=== PATIENT | male | born 1960 | race Caucasian/White ===

== ENCOUNTER → 2018-04-23 | Outpatient (CLI) | payer OTHER ==
--- NOTE | 2018-04-23 16:27 | CONS ---
CONSULTATION REASON FOR CONSULTATION: Sleep apnea. 57-year-old male patient coming in due to concerns of obstructive sleep apnea. The patient is having loud snoring and he is feeling tired and sleepy during the day. 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 He lives in [place]. The patient drives approximately an hour back and forth in each direction to go back and forth to work. At times while coming back home he feels tired and sleepy. He has never fallen asleep nor has he been involved in a motor vehicle accident because of feeling drowsy or sleepy. The patient typically goes to bed at around 10 to 11:00 p.m. and wakes up at 5:00 a.m. in the morning. The patient averages around 6-7 hours of sleep. He wakes up tired and sleepy during the day. No sleep paralysis. No hallucinations. No cataplexy. No restlessness in lower extremities. No history of depression. No recent weight gain or weight loss. He sleeps in different body positions. He prefers to sleep on his side. He drinks 3-4 cups of coffee during the day. No history of alcohol. No history of IV drugs. He quit smoking in September of 2017. PAST MEDICAL HISTORY: Coronary artery disease with previous coronary stenting, diabetes, hypertension, hyperlipidemia. PAST SURGICAL HISTORY: Includes cardiac catheterization, coronary artery stent placement. Hernia repair. DRUG ALLERGIES: Not known. OUTPATIENT MEDICATION LIST: Includes aspirin 81 daily, Lipitor 80 daily, enalapril 20 daily, Norvasc 5 mg p.o. daily, Coreg 25 mg twice a day. Torsemide 10 mg p.o. daily, clonidine 0.1 mg p.o. daily, glipizide 5 mg p.o. daily, 30 mg p.o. daily, vitamin D 2000 units daily, cinnamon and multivitamin. SOCIAL HISTORY: The patient is a nonsmoker. For now he is an ex-smoker who quit smoking in September 2017. No history of alcohol, no history of IV drugs. FAMILY HISTORY: Negative for sleep apnea. REVIEW OF SYSTEMS: 12-point review of system was done. Positive findings are mentioned above in history of present illness. No history of insomnia. No history of choking or gasping sensation at nighttime. No grinding of the teeth. No sleepwalking. No anxiety or panic attacks. No palpitation. No heartburn. No anxiety. No claustrophobia. No sexual dysfunction. PHYSICAL EXAMINATION: Current vitals BP is 161/55, pulse 78, respirations 16, temperature 98.4, saturation 96% on room air. Weight is 207, height 5 feet 7 inches. Neck size 13.5 inches, BMI 32.4. GENERAL APPEARANCE: Calm, comfortable. No acute distress. Head is atraumatic, normocephalic. Neck is short, supple. Crowding of the posterior pharynx is present and the patient has a Mallampati class IV. The patient has no teeth in the upper jaw. ABDOMEN: Soft, nontender. No organomegaly. No direct tenderness, rebound or guarding. EXTREMITIES: No edema. No cyanosis or clubbing. NEUROLOGIC: The patient is alert and oriented x3. There is no focal neurological deficits. PSYCHIATRIC: Negative for anxiety or depression. IMPRESSION: 1. Excessive hypersomnia with suspected obstructive sleep apnea, currently under investigation. 2. Snoring. 3. Coronary artery disease with previous coronary intervention and stenting. 4. Hyperlipidemia. 5. Hypertension. 6. Diabetes mellitus type 2. PLAN: 1. Encourage weight loss. 2. Sleep in a sidewise body position. 3. Implement good sleep hygiene measures. 4. Proceed with a screening polysomnogram to assess the presence of obstructive sleep apnea and treat accordingly. MMODL / IJN: [id number] /
== END | disposition home or self-care (01) ==
LOC: SLEEP 14:38
PROVIDERS: ATTEND Internal Medicine Critical Care Medicine
DX: G47.10 Hypersomnia, unspecified (principal); R06.83 Snoring; I25.10 Atherosclerotic heart disease of native coronary artery without angina pectoris; E78.5 Hyperlipidemia, unspecified; I10 Essential (primary) hypertension; E11.9 Type 2 diabetes mellitus without complications; Z95.5 Presence of coronary angioplasty implant and graft; Z87.891 Personal history of nicotine dependence; Z98.890 Other specified postprocedural states; Z79.82 Long term (current) use of aspirin; Z79.84 Long term (current) use of oral hypoglycemic drugs; Z79.899 Other long term (current) drug therapy
CPT/HCPCS: 99211

== ENCOUNTER → 2018-09-03 | Outpatient (CLI) | payer OTHER ==
--- NOTE | 2018-09-03 16:21 | PN ---
PROGRESS NOTE This is a 78-year-old male patient coming in for a compliancy check regarding obstructive sleep apnea. The patient was diagnosed having mild FUNMI with an AHI of 9.1. The patient is currently on a CPAP pressure of 8 cm of water. The patient is doing extremely well. He reports improvement in sleepiness and daytime functioning and his sleep quality has also improved. Compliance data over the past 30 days show that the patient has been using his CPAP 28/30 days and he has achieved more than 4 hours 66% of the time averaging around 5.4 hours of CPAP use per night. Leak factor is around 20 L and his AHI of treatment is down to 2.4. He is using the Mirage FX nose mask. He is doing well. No other complaints otherwise for now. REVIEW OF SYSTEMS: 12-point review of system was done. Positive findings are mentioned in history of present illness. PHYSICAL EXAMINATION: BP is 176/84, pulse 68, respirations 16, weight is 195, temperature 98.3, saturation 96% on room air. GENERAL APPEARANCE: Calm, comfortable. Head is atraumatic, normocephalic. NECK: Supple. No JVD. No goiter or masses. LUNGS: Clear to auscultation. HEART: Sounds regular rhythm. Normal S1, S2. No S3. No murmurs. ABDOMEN: Soft, nontender. No organomegaly. EXTREMITIES: No edema. No cyanosis or clubbing. NEUROLOGIC: Alert and oriented x3. There is no focal neurological deficits. Psychiatric: Negative for anxiety or depression. IMPRESSION: 1. Symptomatic obstructive sleep apnea with an AHI of 9.1, currently undergoing CPAP therapy at a pressure of 8. Treatment is successful. 2. Coronary artery disease with previous coronary intervention and stenting. 3. Hypertension. 4. Hyperlipidemia. 5. Hypersomnia, improved. [place] score is down to 4. 6. Diabetes mellitus. 7. Hyperlipidemia. PLAN: 1. Continue CPAP therapy at the same level of pressure. 2. Encourage weight loss. 3. Implement good sleep hygiene measures. 4. We will continue to follow and make further recommendations based on overall progress. 5. See me back in a year's time in followup. MMODL / IJN: [id number] /
== END ==
LOC: SLEEP 15:00
PROVIDERS: ATTEND Internal Medicine Critical Care Medicine
DX: G47.33 Obstructive sleep apnea (adult) (pediatric) (principal); I25.10 Atherosclerotic heart disease of native coronary artery without angina pectoris; I10 Essential (primary) hypertension; E78.5 Hyperlipidemia, unspecified; G47.10 Hypersomnia, unspecified; E11.9 Type 2 diabetes mellitus without complications; Z99.89 Dependence on other enabling machines and devices